=== PATIENT | female | born 2000 | race Caucasian/White ===

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

== ENCOUNTER 2018-10-06 10:12 | Emergency (ER) | payer OTHER ==
[~2018-10-06] VITALS: Ht 154.9 cm; Wt 59.9 kg
[~2018-10-06 10:12] MED LIST: NITR100C62 PO
[2018-10-06 11:27] VITALS: BP 114/74
--- NOTE | 2018-10-06 11:56 | PHYS DOC ---
Past Medical History Past Medical History: Anxiety Additional Past Medical Histor: ADHD Past Surgical History: No Surgical History Alcohol Use: None Drug Use: None Adult General Chief Complaint Chief Complaint: SORE THROAT HPI HPI Patient is a 18 year old female who presents to the emergency room today with complaints of a sore throat for the last 4 days. Patient states that her entire body has felt achy for the last 2 days. She denies any nausea, vomiting, diarrhea, abdominal pain, cough, chest pain, shortness of breath, or measured fever. Patient states she has felt hot at times, and currently complains of bilateral ear pain. Review of Systems Review of Systems Constitutional: reports tactile fevers, fatigue, adn body aches Eyes: Denies changes HENT: Denies nasal congestion; see HPI Respiratory: Denies cough or shortness of breath [] Cardiovascular: No additional information not addressed in HPI [] GI: Denies abdominal pain, nausea, vomiting, or diarrhea [] Musculoskeletal: reports body aches Integument: Denies rash or skin lesions [] Neurologic: Denies headache, focal weakness or sensory changes [] Allergies Allergies Allergies Coded Allergies Type Severity Reaction Last Updated Verified No Known Drug Allergies 08/08/17 No Physical Exam Physical Exam Constitutional: Well developed, well nourished, no acute distress, non-toxic appearance. [] HENT: Normocephalic, atraumatic, bilateral external ears normal, bilateral TMs normal, mild erythema of posterior pharynx, oropharynx moist, no oral exudates, nose normal. [] Eyes: conjunctiva normal, no discharge. [] Neck: Normal range of motion, no tenderness, supple, no stridor. [] Cardiovascular:Heart rate regular rhythm, no murmur [] Lungs & Thorax: Bilateral breath sounds clear to auscultation [] Skin: Warm, dry, no erythema, no rash. [] Neurologic: Alert and oriented X 3, no focal deficits noted. [] Psychologic: Affect normal, judgement normal, mood normal. [] Current Patient Data Vital Signs Vital Signs Date Time Temp Pulse Resp B/P (MAP) Pulse Ox O2 Delivery O2 Flow Rate FiO2 10/06/18 11:27 99.4 100 16 114/74 (87) 100 Room Air 99.4 Lab Values Laboratory Tests Test 10/06/18 12:07 Group A Streptococcus Rapid Positive (NEGATIVE) EKG EKG [] Radiology/Procedures Radiology/Procedures [] Course & Med Decision Making Course & Med Decision Making Pertinent Labs and Imaging studies reviewed. (See chart for details) Dx: strep pharyngitis rapid strep positive. Rx for amoxicillin 500 bid x10 d. Patient verbalized an understanding of home care, medications, follow-up, and return to ED instructions and was in agreement with the plan of care. [] Dragon Disclaimer Dragon Disclaimer This electronic medical record was generated, in whole or in part, using a voice recognition dictation system. Departure Departure Impression: Primary Impression: Strep pharyngitis Disposition: HOME, SELF-CARE Condition: STABLE Referrals: KENNY FERGUSON (PCP) Patient Instructions: Strep Throat, [id number] Additional Instructions: Fill prescription and use as directed. Recommend warm salt water gargles as needed for relief of discomfort. Alternate Tylenol and ibuprofen as needed for fever/pain. Discard your toothbrush tomorrow and begin using a new toothbrush. Follow-up with primary care doctor if symptoms persist. Return to the ER if symptoms worsen. Scripts Amoxicillin (AMOXICILLIN) 500 Mg Tablet 500 MG PO BID for 10 Days, #20 TAB 0 Refills Prov: RODOLFO ROBERTSON APRN 10/06/18 RODOLFO ROBERTSON APRN Oct 06, 2018 11:56
[2018-10-06] MEDS ORDERED: AMOX500T PO (12:59)
[2018-10-06 17:14] LABS: INFLUENZA A PATIENT NEGATIVE (NEGATIVE)
[2018-10-06 17:16] LABS: INFLUENZA B PATIENT POSITIVE (NEGATIVE)
== END 2018-10-06 13:10 | disposition home or self-care (01) ==
LOC: ER 10:12
DX: J02.0 Streptococcal pharyngitis (principal); B95.5 Unspecified streptococcus as the cause of diseases classified elsewhere; M79.18 Myalgia, other site; F41.9 Anxiety disorder, unspecified
CPT/HCPCS: 87804; 87880; 99283